=== PATIENT | female | born 1990 | race African-American/Black ===

== ENCOUNTER 2016-08-25 22:08 | Emergency (ER) | payer SELFPAY ==
[~2016-08-25] VITALS: Ht 175.3 cm; Wt 81.8 kg
[2016-08-25 22:13] VITALS: PULSE 83; TEMP 98.4
[2016-08-25] MEDS ORDERED: NORCO 325 MG-51 TAB PO (22:17)
[2016-08-25] MEDS ORDERED: MOTRIN 200200 MG/TAB PO (22:17)
[2016-08-25 23:52] VITALS: BP 124/75
== END 2016-08-25 23:58 | disposition home or self-care (01) ==
LOC: COL.ER 22:08
DX: K56.41 Fecal impaction (principal); F17.200 Nicotine dependence, unspecified, uncomplicated; Z87.59 Personal history of other complications of pregnancy, childbirth and the puerperium; Z98.890 Other specified postprocedural states

== ENCOUNTER 2019-02-22 22:51 | Outpatient (CLI) | payer MEDICAID ==
[~2019-02-22] VITALS: Ht 175.3 cm; Wt 105.5 kg
[~2019-02-22 22:51] MED LIST: MOTRIN 200200 MG/TAB PO; NORCO 325 MG-51 TAB PO
--- NOTE | 2019-02-22 23:00 | NUR ---
at 33 weeks and 3 days arrives to unit with complaint of lower back pain and one episode of emesis earlier today. Pt reports occasional tightening of abdomen, reports good movement, and denies LOF or vaginal bleeding. Pt denies headaches, RUQ pain or blurry vision. Pt oriented to room, call light within reach, bed in low and locked position. US and toco explained and applied. Vital signs obtained. Admission assessment started. SVE closed/thick/high. Pt also reports feeling increased urgency with urination and feeling like bladder is always full.
[2019-02-22 23:15] VITALS: BP 127/81; PULSE 100; TEMP 98
[2019-02-22] MEDS ORDERED: PRENATAL MVI (23:41)
[2019-02-22] MEDS ORDERED: FERROUSAL325 MG PO (23:41)
[2019-02-22 23:42] LABS: COLLECTION METHOD CLEAN CATCH
[2019-02-22 23:50] LABS: MUCOUS Present /lpf; PH 5 (5-8); SQUAMOUS EPITHELIAL 0-2 /hpf; URINE APPEARANCE Hazy; URINE BACTERIA None Seen /hpf; URINE BILIRUBIN Negative (NEGATIVE); URINE BLOOD Negative (NEGATIVE); URINE COLOR Yellow; URINE GLUCOSE Negative (NEGATIVE); URINE KETONE Negative (NEGATIVE); URINE LEUKOCYTE ESTERASE 1+ (NEGATIVE); URINE NITRATE Negative (NEGATIVE); URINE PROTEIN(semi-quant) 1+ (NEGATIVE)
--- NOTE | 2019-02-23 00:15 | NUR ---
UA results reviewed with sydney Wilkins to discharge home.
--- NOTE | 2019-02-23 00:20 | NUR ---
Discharge instructions reviewed with patient, pt verbalized understaning. Pt seen ambulating off unit.
== END 2019-02-23 00:20 | disposition home or self-care (01) ==
LOC: LDRO 22:51
PROVIDERS: Obstetrics & Gynecology
DX: O99.89 Other specified diseases and conditions complicating pregnancy, childbirth and the puerperium (principal); M54.5 Low back pain; Z3A.33 33 weeks gestation of pregnancy

== ENCOUNTER 2019-04-01 13:41 | Outpatient (CLI) | payer MEDICAID ==
[~2019-04-01] VITALS: Ht 175.3 cm; Wt 106.8 kg
[~2019-04-01 13:41] MED LIST changes: +FERROUSAL325 MG PO; +PRENATAL MVI
[2019-04-01 13:55] VITALS: BP 124/86; PULSE 108; TEMP 98
--- NOTE | 2019-04-01 13:55 | NUR ---
Patient ambulatory to unit accompanied by significant other. Patient states since she lost her mucous plug yesterday she has "felt wet and leaking." FHR and contraction monitors placed and explained. Patient denies any vaginal bleeding and states baby is active. SVE closed/posterior, amniotest negative. Assessment completed. Patient states she currently has a headache and seeing some occasional floaters.
[2019-04-01 14:30] VITALS: BP 106/66; PULSE 103
[2019-04-01 15:00] VITALS: BP 110/69; PULSE 103
[2019-04-01 15:30] LABS: BASO % 0.4 % (0.0-2.0); EOS # 0.1 (0.0-0.7); EOS % 1.2 % (0-4.0); GRAN # 4.3 (1.4-6.5); GRAN % 64.4 % (42.2-75.2); HEMOGLOBIN 10.8 g/dl (12.5-16.0); LYMPH # 1.6 (1.2-3.4); LYMPH % 24.2 % (20.0-51.0); MEAN CELL VOLUME 86 fl (80.0-100.0); MEAN CORPUSCULAR HEMOGLOBIN 27 pg (27.0-31.0); MEAN CORPUSCULAR HGB CONC 32 g/dl (33.0-37.0); MEAN PLATELET VOLUME 9.2 fl (7.4-10.4); MONO # 0.6 (0.1-0.6); MONO % 9.5 % (1.7-9.3); PLATELET COUNT 324 K/mm3 (130-400); RED BLOOD COUNT 3.98 M/mm3 (4.10-5.30); REDCELL DISTRIBUTION WIDTH-CV 13.4 % (11.5-14.5)
[2019-04-01 15:34] LABS: HEMATOCRIT 34.1 % (37.0-47.0)
[2019-04-01 15:42] LABS: ALBUMIN 3.4 gm/dL (3.5-5.0); BILIRUBIN,TOTAL 0.2 mg/dL (0.0-1.0); CALCIUM 8.8 mg/dL (8.4-10.2); CREATININE, serum 0.75 (0.52-1.25); POTASSIUM 4.2 mmol/L (3.4-5.0); TOTAL PROTEIN 6.9 gm/dL (6.4-8.2)
--- NOTE | 2019-04-01 15:43 | NUR ---
1543: Contraction monitors not tracing. Monitors changed. Patient having contractions but denies feeling them.
[2019-04-01 16:00] VITALS: BP 109/69; PULSE 88
[2019-04-01 16:30] VITALS: BP 122/73; PULSE 83
[2019-04-01 16:46] VITALS: BP 114/77; PULSE 105
--- NOTE | 2019-04-01 16:46 | NUR ---
Patient off monitors. Discharge instructions reviewed with patient. Patient verbalizes understanding.
== END 2019-04-01 16:55 | disposition home or self-care (01) ==
LOC: LDRO 13:41
PROVIDERS: Obstetrics & Gynecology
DX: Z34.93 Encounter for supervision of normal pregnancy, unspecified, third trimester (principal); Z3A.38 38 weeks gestation of pregnancy

== ENCOUNTER 2019-04-06 11:18 | Outpatient (CLI) | payer MEDICAID ==
[~2019-04-06] VITALS: Ht 175.3 cm; Wt 106.8 kg
--- NOTE | 2019-04-06 11:25 | NUR ---
Pt arrives ambulatory to unit from the ER, reporting contractions and appearing uncomfortable. Pt reports uncomfortable contractions since 0830 this morning, states membranes were stripped in office. Pt denies any vaginal bleeding, leaking of fluid, and reports normal movement. EFM explained and placed, vital signs taken, assessment complete. SVE /-3 per Ching Rodas RN, unchanged from office. PT updated on plan of care, denies needs at this time.
[2019-04-06] MEDS ORDERED: PEPCID AC 10MG10 MG PO (12:17)
[2019-04-06 12:20] VITALS: BP 124/81; PULSE 113; TEMP 97.5
--- NOTE | 2019-04-06 13:14 | NUR ---
1234 - Pt sitting upright in bed, maternal heart rate tracing. 1240 - SVE unchanged. See physican notification. Pt off monitor per request. Discussed options to stay for recheck or go home with instructions. Pt desires to go home. 1310 - Pt given discharge instructions. Reviewed labor precautions and kick counts. Pt denies questions, leaves ambulatory.
== END 2019-04-06 13:10 | disposition home or self-care (01) ==
LOC: LDRO 11:18
DX: O62.9 Abnormality of forces of labor, unspecified (principal); Z3A.39 39 weeks gestation of pregnancy

== ENCOUNTER 2019-04-06 17:18 | Inpatient (IN) | payer MEDICAID ==
[2019-04-06] VITALS (12 sets, daily range): BP systolic 106–182; BP diastolic 61–110; PULSE 74–118; TEMP 98.2–98.6
[~2019-04-06] VITALS: Ht 175.3 cm; Wt 108.2 kg
[~2019-04-06 17:18] MED LIST changes: +PEPCID AC 10MG10 MG PO
[2019-04-06 18:21] LABS: BASO % 0.2 % (0.0-2.0); GRAN # 9.3 (1.4-6.5); GRAN % 88.2 % (42.2-75.2); HEMOGLOBIN 11.5 g/dl (12.5-16.0); LYMPH # 0.9 (1.2-3.4); LYMPH % 8.5 % (20.0-51.0); MEAN CELL VOLUME 85 fl (80.0-100.0); MEAN CORPUSCULAR HEMOGLOBIN 27 pg (27.0-31.0); MEAN CORPUSCULAR HGB CONC 32 g/dl (33.0-37.0); MEAN PLATELET VOLUME 9.8 fl (7.4-10.4); MONO # 0.3 (0.1-0.6); MONO % 2.8 % (1.7-9.3); PLATELET COUNT 372 K/mm3 (130-400); RED BLOOD COUNT 4.24 M/mm3 (4.10-5.30); REDCELL DISTRIBUTION WIDTH-CV 13.7 % (11.5-14.5)
[2019-04-06 18:23] LABS: HEMATOCRIT 36.1 % (37.0-47.0)
--- NOTE | 2019-04-06 19:05 | NUR ---
1819- Patient 10cm and feeling constant pressure. Forebag noted at this time of exam. 1822- Dr. Ireland called for delivery. 1844- Dr. Ireland at bedside for delivery. Patient placed in stirrups/lithotomy and instructed on pushing. Patient verbalized understanding. 1848- Initial pushing. Dr. Ireland remains at bedside while intermittently pushing. 1854- Nursery nurse called to delivery. 1904- Spontaneous delivery of viable female infant at this time. placed on patient's chest, dried and stimulated, pink and crying. Infant had nuchal x1 per Dr. Ireland. Nursery nurse assessing and completing vitals. 1908- Spontaneous delivery of intact placenta. Pitocin running through IV at 333cc/hr. 1909- Fundus F/U/small amount of bleeding. Small clots expressed from Dr. Ireland. 1911- 1st degree laceration repaired per Dr. Ireland
[2019-04-07 03:00] VITALS: BP 111/70; PULSE 77; TEMP 98.6
[2019-04-07 08:00] VITALS: BP 123/79; PULSE 77; TEMP 97.9
--- NOTE | 2019-04-07 10:06 | NUR ---
Initial visit; Patient thanked Marble Polisher for offering congratulations and God's blessings for the of her daughter. Marble Polisher thanked family for choosing [facility].
[2019-04-07 15:19] VITALS: BP 132/82; PULSE 84; TEMP 98
[2019-04-07 20:00] VITALS: BP 111/68; PULSE 72; TEMP 97.9
[2019-04-08 06:40] VITALS: BP 123/77; PULSE 80; TEMP 98
[2019-04-08] MEDS ORDERED: MOTRIN 600600 MG/TAB PO (08:13)
[2019-04-08] MEDS ORDERED: PERCOCET 325 MG1 TA2 PO (08:14)
[2019-04-08] MEDS ORDERED: ZOLOFT 50MG50 MG PO (08:14)
[2019-04-08 16:10] VITALS: BP 142/87; PULSE 60; TEMP 97.6
== END 2019-04-08 17:00 | disposition home or self-care (01) | DRG 807 ==
LOC: OB 17:18 → LDR 17:18 → OB 19:05
PROVIDERS: Obstetrics & Gynecology; ADMIT Obstetrics & Gynecology
PROC: 10E0XZZ Delivery of Products of Conception, External Approach (ICD-10-PCS; principal; 2019-04-06)
PROC: 0HQ9XZZ Repair Perineum Skin, External Approach (ICD-10-PCS; 2019-04-06)
DX: O99.824 Streptococcus B carrier state complicating childbirth (principal); O99.52 Diseases of the respiratory system complicating childbirth; O70.0 First degree perineal laceration during delivery; O99.344 Other mental disorders complicating childbirth; J45.909 Unspecified asthma, uncomplicated; F41.9 Anxiety disorder, unspecified; F32.9 Major depressive disorder, single episode, unspecified; Z37.0 Single live birth; Z3A.39 39 weeks gestation of pregnancy
CPT/HCPCS: J2540; J2590; J7120